=== PATIENT | female | born 1975 | race Two or more races ===

== ENCOUNTER 2017-03-31 12:07 | Outpatient (CLI) | payer OTHER | END 2017-03-31 12:17 | disposition home or self-care (01) | LOC: SONOGRAMA 12:07 | DX: E04.2 Nontoxic multinodular goiter (principal) ==

== ENCOUNTER 2017-03-31 12:10 | Outpatient (CLI) | payer OTHER | END 2017-03-31 12:19 | disposition home or self-care (01) | LOC: RAD 12:10 | DX: M75.82 Other shoulder lesions, left shoulder (principal) ==

== ENCOUNTER → 2017-03-31 | Outpatient (CLI) | payer OTHER | END | disposition home or self-care (01) | LOC: LAB 07:56 | DX: D50.1 Sideropenic dysphagia (principal) ==

== ENCOUNTER 2017-04-19 09:11 | Outpatient (CLI) | payer OTHER | END 2017-04-19 09:23 | disposition home or self-care (01) | LOC: MRI 09:11 | DX: M54.5 Low back pain (principal) | CPT/HCPCS: 72148 ==

== ENCOUNTER 2017-04-19 09:13 | Outpatient (CLI) | payer OTHER | END 2017-04-19 09:23 | disposition home or self-care (01) | LOC: SONOGRAMA 09:13 | DX: M75.102 Unspecified rotator cuff tear or rupture of left shoulder, not specified as traumatic (principal) ==

== ENCOUNTER 2017-05-09 07:34 | Outpatient (CLI) | payer OTHER | END 2017-05-09 07:37 | disposition home or self-care (01) | LOC: NUCLEAR 07:34 | DX: E06.9 Thyroiditis, unspecified (principal) | CPT/HCPCS: 78013; A9512 ==

== ENCOUNTER 2017-06-13 07:46 | Outpatient (CLI) | payer OTHER | END 2017-06-13 07:47 | disposition home or self-care (01) | LOC: SONOGRAMA 07:46 | DX: N39.0 Urinary tract infection, site not specified (principal) ==

== ENCOUNTER 2017-06-30 11:22 | Outpatient (CLI) | payer OTHER | END 2017-06-30 11:33 | disposition home or self-care (01) | LOC: LAB 11:22 | DX: N39.0 Urinary tract infection, site not specified (principal) ==

== ENCOUNTER 2018-01-29 07:39 | Outpatient (CLI) | payer OTHER | END 2018-01-29 14:58 | disposition home or self-care (01) | LOC: SONOGRAMA 07:39 | DX: N39.8 Other specified disorders of urinary system (principal) ==

== ENCOUNTER 2018-04-11 09:29 | Outpatient (CLI) | payer OTHER | END 2018-04-11 09:51 | disposition home or self-care (01) | LOC: SONOGRAMA 09:29 → MAMO-SONO 10:15 | DX: N84.0 Polyp of corpus uteri (principal) ==

== ENCOUNTER → 2018-04-25 | Day surgery (SDC) | payer OTHER ==
[~2018-04-25] MED LIST: SYNTH PO
== END | disposition home or self-care (01) ==
LOC: ADM 04-24 07:30 → CIR.AMB 07:30
DX: N84.0 Polyp of corpus uteri (principal)

== ENCOUNTER 2018-12-12 08:57 | Outpatient (CLI) | payer OTHER | END 2018-12-12 09:15 | disposition home or self-care (01) | LOC: NUCLEAR 08:57 | DX: R00.2 Palpitations (principal) ==